=== PATIENT | male | born 1990 | race Caucasian/White ===

== ENCOUNTER 2023-05-09 07:19 | Emergency (ER) | payer SELFPAY ==
[~2023-05-09] VITALS: Ht 167.6 cm; Wt 79.4 kg
[2023-05-09 07:25] VITALS: BP 150/95; PULSE 109; RESP 16; TEMP 98.2; O2SAT 99
--- NOTE | 2023-05-09 07:26 | NUR ---
TO BED AMBULATORY
--- NOTE | 2023-05-09 07:46 | NUR ---
33 YO M PRESENTS WITH LT HAND PAIN PUNCTURE DRAINAGE, SWELLING, TINGLING, NUMBNESS X 6DAYS AFTER PUNCHING THE WALL. PT DENIES FEVER, LOSS OF SENSATION. LIMITED ROM TO LT HAND. PT DENIES ANY OTHER SYMPTOMS. FIRLFRIEND AT BEDSIDE. NAD, SAFETY MAINTAINED, CALL LIGHT IN REACH. HX: DENIES NKA
[2023-05-09] MEDS ORDERED: HYDROcodone/APAP 5/325 MG 1 TAB TAB PO ONE (07:50)
[2023-05-09] MEDS ORDERED: cefTRIAXone 1,000 MG in LIDOCAINE MPF 1% 2.1 ML IM ONE (07:50)
[2023-05-09] MEDS ORDERED: KETOROLAC 30 MG/ML VIAL IM ONE (07:50)
[2023-05-09] MEDS ORDERED: cefTRIAXone 1,000 MG VIAL ONE (07:58)
[2023-05-09] MEDS ORDERED: LIDOCAINE MPF 1% 5 ML ONE (07:58)
[2023-05-09] MEDS ORDERED: ACET-8905 PO (08:00)
[2023-05-09] MEDS ORDERED: NAPR-54 PO (08:00)
[2023-05-09] MEDS ORDERED: AMOX1TAB8 PO (08:00)
--- NOTE | 2023-05-09 08:19 | NUR ---
WOUND TO L ANTERIOR PALM IRRIGATED, DRESSED WITH NON ADHERENT X 1. + CMS. FABRICATED VOLAR SPLINT APPLIED.
--- NOTE | 2023-05-09 08:35 | NUR ---
Patient discharged with v/s stable. Written and verbal after care instructions given and explained. Patient alert, oriented and verbalized understanding of instructions. Ambulatory with steady gait. All questions addressed prior to discharge. ID band removed. Patient advised to follow up with PMD. Rx of NAPROSEN, AMOXICILLIN, TYLENOL given. Patient educated on indication of medication including possible reaction and side effects. Opportunity to ask questions provided and answered.
--- NOTE | 2023-05-09 08:37 | NUR ---
The patient's care was reviewed and supervised by ED Agency Nurse 9, RN, RN.
== END 2023-05-09 08:37 | disposition home or self-care (01) ==
LOC: MED 07:19
DX: S60.222A Contusion of left hand, initial encounter (principal); L03.114 Cellulitis of left upper limb; W22.01XA Walked into wall, initial encounter; Y93.89 Activity, other specified; Y92.89 Other specified places as the place of occurrence of the external cause; Y99.8 Other external cause status
CPT/HCPCS: 29125; 73130; 90471; 90715; 96372; 99284; J0696; J1885; J2001; Q0092